=== PATIENT | male | born 1980 | race Caucasian/White ===

== ENCOUNTER → 2021-11-27 16:19 | Outpatient (CLI) | payer OTHER, SELFPAY ==
[2021-11-27 17:46] LABS: COVID19 -Nasal RAPID Negative (Negative)
== END ==
PROVIDERS: PCP Nurse Practitioner Family; Visit Provider Surgery
DX: Z20.822 Contact with and (suspected) exposure to COVID-19 (principal); Z01.812 Encounter for preprocedural laboratory examination
CPT/HCPCS: 87635; C9803

== ENCOUNTER 2021-11-28 07:30 | Day surgery (SDC) | payer OTHER, SELFPAY ==
[2021-11-25 10:41] VITALS: BMI 33.3
[2021-11-28] VITALS (8 sets, daily range): BP systolic 112–136; BP diastolic 75–90; PULSE 68–78; RESP 14–20; TEMP 35.9–36.5; O2SAT 93–97; BMI 33.3
[2021-11-28] MEDS: LACTATED RINGERS 1,000 ML 100 ML IV (08:12)
--- NOTE | 2021-11-28 09:05 | PM.PREOP ---
Pre-operative Note Interval Note History & Physical reviewed/Exam performed by Physician: Yes Changes to H&P: No
[2021-11-28] MEDS: CEFAZOLIN 2 GM/20 ML SYRINGE IV (09:22)
--- NOTE | 2021-11-28 09:22 | PM.OP.1 ---
Operative Date/Time/Diagnoses Date of procedure: 11/28/21 Time of procedure: 09:23 Pre-op diagnosis: Umbilical hernia Post-op diagnosis: same Procedure & Clinicians Procedure: Open umbilical hernia repair Same procedure as scheduled: Yes Indications: Symptomatic reducible umbilical hernia Surgeon: Scott Johnson Click Yes if Unassisted: Yes Anesthesia Type: General Operative Notes Specimen(s): none sent Estimated Blood Loss (mL): 10 Procedure in detail: Patient was brought to the operating room placed supine on the table. Bilateral lower extremity compression devices were applied. General anesthesia was induced and they were intubated with an endotracheal tube. They received 2 g of Ancef prior to skin incision. They were prepped and draped in sterile fashion. A time-out was performed. A curvilinear incision was made inferior to the umbilicus. The subcutaneous tissues were divided. The umbilical hernia was identified and the hernia sac was dissected off the umbilical skin and circumferentially off of the fascia defect. The hernia sac was sharply opened and contained viable omentum. The omentum was reduced back into the abdomen. Using blunt dissection I carefully carefully freed the hernia sac from beneath the fascia defect in order to accomodate the mesh. The fascia defect was 1.5 cm in maximal diameter. A Bard Ventralex ST hernia patch 4 cm was inserted beneath the fascia defect with the anti-adhesive side face down. The mesh was anchored in multiple locations using Ethibond suture to the fascia and the fascial defect was closed over the mesh. The umbilical skin was tacked to the subcutaneous tissues and then the remainder of the subcutaneous tissues were reapproximated using 3 0 Vicry,l skin closed with 4 0 Monocryl followed by the application of Dermabond and Steri-Strips. Sponge instrument count at the end of the operation was correct. Patient tolerated procedure well was extubated and transferred to postoperative care unit in stable condition. Complications: none Post-operative Condition: stable Disposition: same day surgery
[2021-11-28] MEDS: BUPIVACAINE 0.25% (PF) VIAL 30 ML INJ (09:32)
--- NOTE | 2021-11-28 09:35 | SUR.OPER ---
Supine on padded OR bed, head on pillow, arms secured on padded arm boards at <90 degrees abduction, legs uncrossed, safety belt at thigh, tape over blanket over lower legs.
[2021-11-28] MEDS: OXYCODONE/ACETAMINOPHEN 5/325 TABLET 1 TAB PO (10:39)
== END 2021-11-28 11:14 | disposition home or self-care (01) ==
PROVIDERS: PCP Nurse Practitioner Family; Referring Provider Surgery; Visit Provider Surgery
PROC: (CPT 49585; principal; 2021-11-28 09:15)
DX: K42.9 Umbilical hernia without obstruction or gangrene (principal)
CPT/HCPCS: 49585; 82962; J0690; J2250; J2405; J2704; J3010